=== PATIENT | male | born 1980 | race Caucasian/White ===

== ENCOUNTER 2021-12-26 21:49 | Emergency (ER) | payer MEDICAID ==
[2021-12-26] MEDS ORDERED: Proparacaine 0.5% Ophth Soln 15 ML Bottle EYERT ONE (22:31)
[2021-12-26] MEDS ORDERED: Nicotine 14 MG/24 Hr Patch TRDERM ONE (22:32)
[2021-12-26] MEDS ORDERED: Erythromycin Base 0.5% Ophth Oint 1 GM Tube EYERT ONE (22:46)
[2021-12-26] MEDS ORDERED: Erythromycin Base 0.5% Ophth Oint 1 GM Tube ONE (22:54)
== END 2021-12-26 23:35 | disposition other institution (70) ==
LOC: JP.ED 21:49
DX: H10.31 Unspecified acute conjunctivitis, right eye (principal); F15.10 Other stimulant abuse, uncomplicated; F17.210 Nicotine dependence, cigarettes, uncomplicated; Z88.0 Allergy status to penicillin
CPT/HCPCS: 80305-QW; 99282; 99284; A9270-GY

== ENCOUNTER 2021-12-29 08:31 | Emergency (ER) | payer MEDICAID ==
[2021-12-29] MEDS ORDERED: Sodium Chloride 0.9% 10 ML Syringe FLUSH PRN (09:01)
[2021-12-29] MEDS ORDERED: Ondansetron 4 MG/2 ML SDV IVPUSH ONE (09:02)
[2021-12-29] MEDS ORDERED: fentaNYL 100 MCG/2 ML SDV IVPUSH ONE (09:02)
[2021-12-29] MEDS ORDERED: Iopamidol 612 MG/ML 500 ML Multipack Bottle IV ONE (09:09)
[2021-12-29] MEDS ORDERED: Lactated Ringers 1,000 ML IV SCH (09:15)
[2021-12-29] MEDS ORDERED: Sodium Chloride 0.9% 50 ML IV SCH (09:15)
[2021-12-29 09:52] LABS: ESTIMATED GFR 78 mL/min (>60); TROPONIN I HIGH SENSITIVITY 7.3 pg/mL (<=60.3)
[2021-12-29] MEDS ORDERED: Ketorolac 30 MG/ML SDV IVPUSH ONE (10:18)
[2021-12-29] MEDS ORDERED: LORazepam 2 MG/ML SDV IVPUSH ONE (10:18)
== END 2021-12-29 12:35 ==
LOC: JP.ED 08:31
DX: R14.0 Abdominal distension (gaseous) (principal); F17.210 Nicotine dependence, cigarettes, uncomplicated; Z88.0 Allergy status to penicillin
CPT/HCPCS: 36415; 74177; 80053; 81001; 83605; 83690; 84484; 85025; 85610; 96361; 96374; 96375; 99283; 99285; J1885; J2060; J2405; J3010; J3490; J7120; Q9967

== ENCOUNTER 2022-01-03 13:34 | Emergency (ER) | payer MEDICAID | END 2022-01-03 14:08 | disposition left against medical advice (07) | LOC: JP.ED 13:34 | DX: Z53.21 Procedure and treatment not carried out due to patient leaving prior to being seen by health care provider (principal) ==